=== PATIENT | male | born 1935 | race Caucasian/White ===

== ENCOUNTER 2019-07-15 19:08 | Emergency (ER) | payer OTHER ==
[~2019-07-15] VITALS: Ht 172.7 cm; Wt 78.5 kg
[2019-07-15] MEDS ORDERED: FLOMAX0.4 MG PO (19:09)
[2019-07-15] MEDS ORDERED: PROSCAR 5MG TABL5 MG PO (19:09)
[2019-07-15 20:30] LABS: BASOPHILS 0.4 % (0.0-2.0); EOSINOPHILS 3.4 % (0.0-3.0); HEMATOCRIT 45.7 % (42.0-52.0); HEMOGLOBIN 15.2 gm/dL (14.0-18.0); LYMPHOCYTES 32.3 % (24.0-44.0); MCH 32.8 pg (26.0-34.0); MCHC 33.3 g/dL (28.0-37.0); MCV 98.4 fL (80.0-100.0); MONOCYTES 8.2 % (1.0-8.0); PLATELET COUNT 155 thou/uL (150-400); POLYS 55.7 % (36.0-66.0); RBC 4.65 mil/uL (4.50-6.00); RDW 14.4 % (10.5-14.5); WBC 5.4 thou/uL (4.0-11.0)
[2019-07-15 20:38] LABS: ANION GAP 8 mmol/L (7-16); BUN 21 mg/dL (7-18); CALCIUM 9.6 mg/dL (8.5-10.1); CHLORIDE 108 mmol/L (98-107); CO2 29 mmol/L (21-32); CREATININE 1.2 mg/dL (0.7-1.3); GLUCOSE 145 mg/dL (74-106); SODIUM 145 mmol/L (136-145)
[2019-07-15 20:48] LABS: ALBUMIN 3.8 g/dL (3.4-5.0); SGOT 25 U/L (15-37); SGPT 33 U/L (30-65); TOTAL BILIRUBIN 0.8 mg/dL (<0.1-1.0); TOTAL PROTEIN 6.8 g/dL (6.4-8.2); TROPONIN-I <0.06 ng/mL (<0.06)
[2019-07-15 20:51] LABS: URINE BILIRUBIN NEGATIVE (Negative); URINE BLOOD NEGATIVE (Negative); URINE CLARITY CLEAR; URINE COLOR YELLOW; URINE GLUCOSE-RANDOM* NEGATIVE (Negative); URINE KETONES NEGATIVE (Negative); URINE PROTEIN (DIPSTICK) NEGATIVE (Negative); URINE SPECIFIC GRAVITY 1.015 (1.005-1.035)
[2019-07-15 20:56] LABS: URINE LEUKOCYTES-REFLEX 1+ (Negative); URINE NITRITE-REFLEX POSITIVE (Negative)
[2019-07-15 21:01] LABS: CASTS None Seen /LPF (None Seen); MUCUS 0-3 Light strn/LPF (None Seen); SQUAMOUS None Seen /LPF (0-3)
[2019-07-15 21:02] LABS: BACTERIA-REFLEX 1-9 Few /HPF (None Seen); CRYSTALS None Seen /LPF (None Seen); URINE RBC None Seen /HPF (0-2)
[2019-07-15] MEDS ORDERED: KEFLEX500 M1 PO (21:42)
[2019-07-15 22:35] VITALS: BP 152/67
--- NOTE | 2019-07-16 12:52 | EKG ---
[place] [address] [facility] [place] [employer] [place] [address] ELECTROCARDIOGRAM REPORT Name: DEIRDREVIVIANARETHA Room #: DEP Mendez#: [id number] Admission: 07/15/19 Attend Phys: Discharge: 07/15/19 Date of : 31 Report #: [id number] THIS REPORT FOR: //name// [facility] ED Test Date: 2019-07-15 Test Time: 19:22:29 Pat Name: ARETHA EASTON Department: Room: Gender: M [employer] Operator: KMD : 1935 Requested By: Celeste Worley Order Number: [id number] MD: Aron Contreras Measurements Intervals [place] Rate: 54 P: 39 TN: 222 QRS: 55 QRSD: 137 T: 35 QT: 451 QTc: 428 Interpretive Statements Sinus rhythm Prolonged TN interval Right bundle branch block No previous ECG available for comparison Electronically Signed On 07-16-2019 12:51:51 ANDROID ARCHITECT by Aron Contreras [email or web address] <ELECTRONICALLY SIGNED> By: Aron Contreras MD, [facility] 07/16/19 1251 192 21 Aron Contreras MD, FACC /EPI
== END 2019-07-15 22:37 | disposition home or self-care (01) ==
LOC: ER 19:08
PROVIDERS: Physician Assistant
DX: N39.0 Urinary tract infection, site not specified (principal); R42 Dizziness and giddiness; R03.0 Elevated blood-pressure reading, without diagnosis of hypertension; Z79.899 Other long term (current) drug therapy